=== PATIENT | female | born 1950 | race Caucasian/White ===

== ENCOUNTER → 2017-02-10 | Outpatient (CLI) | payer BC ==
--- NOTE | 2017-02-10 16:37 | MAMMOGRAPHY REPORT ---
BILATERAL DIGITAL SCREENING MAMMOGRAM WITH CAD: 02/10/2017 CLINICAL HISTORY: Routine screening examination. TECHNIQUE: Current study was also evaluated with a Computer Aided Detection (CAD) system. COMPARISON: Comparison is made to exams dated: 02/04/2016 mammogram, 12/15/2013 mammogram, 12/26/2014 mammogram, 12/14/2012 mammogram, 12/04/2011 mammogram, and 12/03/2010 mammogram - [facility]. BREAST COMPOSITION: The tissue of both breasts is extremely dense, which lowers the sensitivity of mammography. FINDINGS: The parenchymal pattern is unchanged. A few benign coarse calcifications project over th e anterior breasts. No developing mass, architectural distortion or cluster of suspicious microcalc ifications is seen in either breast. IMPRESSION: ACR BI-RADS CATEGORY 2: BENIGN There is no mammographic evidence of malignancy. A 1 year screening mammogram is recommended. The p atient will receive written notification of the results. Approximately 10% of breast cancers are not detected with mammography. A negative mammographic repor t should not delay biopsy if a clinically suggestive mass is present. Jackie Azevedo M.D. ay/:02/10/2017 15:44:32 Clinical Research Scientist: Antonia BARAJAS(Krishna)(Manpreet), [facility] letter sent: Normal 1/2 BI-RADS Code: ACR BI-RADS Category 2: Benign
== END | disposition home or self-care (01) ==
LOC: C.MAMM 11:02
PROVIDERS: ATTEND Obstetrics & Gynecology
DX: Z12.31 Encounter for screening mammogram for malignant neoplasm of breast (principal)

== ENCOUNTER → 2017-03-12 | Outpatient (CLI) | payer BC | END | disposition home or self-care (01) | LOC: C.MAMM 14:40 | PROVIDERS: ATTEND Family Medicine | DX: Z00.00 Encounter for general adult medical examination without abnormal findings (principal); G62.9 Polyneuropathy, unspecified ==

== ENCOUNTER → 2017-12-10 | Outpatient (CLI) | payer BC ==
--- NOTE | 2017-12-10 13:38 | DIAGNOSTIC IMAGING REPORT ---
R FOOT MIN 3 VIEWS ROUTINE CLINICAL HISTORY: Right foot pain. COMPARISON: None FINDINGS: Alignment of the right foot is anatomic. Tarsometatarsal joints are intact. There is moderate plantar calcaneal spurring. No fracture or suspicious lesion is present. There is no radiographic evidence for stress fracture. 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 IMPRESSION: 1. No acute fracture. 2. 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 3. Moderate plantar calcaneal spurring. Electronically signed by: Mango Chairez M.D. 12/10/2017 1:37 PM Dictated Date/Time: 12/10/2017 1:35 PM
== END | disposition home or self-care (01) ==
LOC: C.RADBC 12:52
PROVIDERS: ATTEND Family Medicine
DX: M19.071 Primary osteoarthritis, right ankle and foot (principal); M77.31 Calcaneal spur, right foot

== ENCOUNTER → 2018-02-12 | Outpatient (CLI) | payer BC ==
--- NOTE | 2018-02-12 15:04 | MAMMOGRAPHY REPORT ---
BILATERAL DIGITAL SCREENING MAMMOGRAM TOMOSYNTHESIS WITH CAD: 02/12/2018 CLINICAL HISTORY: Routine screening. Patient has no complaints. TECHNIQUE: Breast tomosynthesis in addition to standard 2D mammography was performed. Current study was also evaluated with a Computer Aided Detection (CAD) system. COMPARISON: Comparison is made to exams dated: 02/10/2017 mammogram, 02/04/2016 mammogram, 12/26/2014 m ammogram, 12/15/2013 mammogram, 12/14/2012 mammogram, and 12/04/2011 mammogram - [facility]. BREAST COMPOSITION: The tissue of both breasts is extremely dense, which lowers the sensitivity of m ammography. FINDINGS: No suspicious masses, calcifications, or areas of architectural distortion are noted in ei ther breast. There has been no significant interval change compared to prior exams. IMPRESSION: ACR BI-RADS CATEGORY 1: NEGATIVE There is no mammographic evidence of malignancy. A 1 year screening mammogram is recommended. The pa tient will receive written notification of the results. Approximately 10% of breast cancers are not detected with mammography. A negative mammographic report should not delay biopsy if a clinically suggestive mass is present. Alba Gibson M.D. /:02/12/2018 12:36:10 Electromagnet Crane Operator: Amisha BARAJAS(Krishna)(Manpreet)(ANGELIQUE), [facility] letter sent: Normal 1/2 BI-RADS Code: ACR BI-RADS Category 1: Negative
== END | disposition home or self-care (01) ==
LOC: C.MAMM 10:07
PROVIDERS: ATTEND Obstetrics & Gynecology
DX: Z12.31 Encounter for screening mammogram for malignant neoplasm of breast (principal)

== ENCOUNTER → 2018-03-24 | Outpatient (CLI) | payer BC | END | disposition home or self-care (01) | LOC: C.RDSM 14:27 | PROVIDERS: ATTEND Podiatrist | DX: M79.672 Pain in left foot (principal) ==